=== PATIENT | male | born 1955 | race Caucasian/White ===

== ENCOUNTER 2016-09-19 16:59 | Emergency (ER) | payer OTHER ==
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
[~2016-09-19 16:59] MED LIST: LIPITOR PO
== END 2016-09-19 20:58 | disposition home or self-care (01) ==
LOC: CED 16:59 → CFTX 16:59
DX: S16.1XXA Strain of muscle, fascia and tendon at neck level, initial encounter (principal); V49.00XA Driver injured in collision with unspecified motor vehicles in nontraffic accident, initial encounter; E11.9 Type 2 diabetes mellitus without complications; I10 Essential (primary) hypertension; Y92.410 Unspecified street and highway as the place of occurrence of the external cause
CPT/HCPCS: 72040; 99284